=== PATIENT | male | born 1935 ===

== ENCOUNTER 2017-10-30 07:22 | Day surgery (SDC) | payer MEDICARE, MEDICAID ==
[2017-10-30] MEDS ORDERED: Propofol 10 mg/ml Inj (20 ML) ONE ×2 (09:43→10:27)
[2017-10-30 09:47] VITALS: BMI 26.6
[2017-10-30] MEDS ORDERED: Lactated Ringer's 1,000 ML IV ONE (09:48)
--- NOTE | 2017-10-30 09:48 | CP.SDSHP ---
Same Day Surgery H & P - History Proposed Procedure: EGD/colonoscopy Pre-Op Diagnosis: abdominal pain, screening - Previous Medical/Surgical History Cardiac: Hypertension, ASHD/CAD Endocrine/Metabolic: Diabetes - Allergies Allergies: Allergies No Known Allergies Allergy (Verified 01/10/15 07:27) - Physical Exam General Appearance: NAD Vital Signs: Vital Signs 10/30/17 08:30 Temperature 96.9 F L Pulse Rate 66 Respiratory 19 Rate Blood Pressure 166/81 H O2 Sat by Pulse 98 Oximetry Mental Status: Alert & Oriented x3 Neuro: WNL Heart: WNL Lungs: WNL GI: WNL - {Optional Preform as Required} Abdomen: WNL - Impression Pt. Evaluated Today:Candidate for Anesthesia & Procedure: Yes - Date & Time Date: 10/30/17 Time: 09:48 Short Stay Discharge - Short Stay Discharge Admitting Diagnosis/Reason for Visit: ABDOMINAL PAIN, SCREENING Disposition: HOME/ ROUTINE
[2017-10-30 10:54] VITALS: TEMP 97.5
[2017-10-30 11:00] VITALS: O2SAT 100
[2017-10-30 11:22] VITALS: PULSE 55; RESP 12
[2017-10-30 11:40] VITALS: BP 138/73
== END 2017-10-30 12:05 | disposition home or self-care (01) ==
LOC: C.ENDO 07:22
PROVIDERS: ATTEND Internal Medicine Gastroenterology
DX: Z12.11 Encounter for screening for malignant neoplasm of colon (principal); R10.13 Epigastric pain; E11.9 Type 2 diabetes mellitus without complications; I10 Essential (primary) hypertension; I25.10 Atherosclerotic heart disease of native coronary artery without angina pectoris; K25.9 Gastric ulcer, unspecified as acute or chronic, without hemorrhage or perforation; K29.70 Gastritis, unspecified, without bleeding; K44.9 Diaphragmatic hernia without obstruction or gangrene; K29.80 Duodenitis without bleeding; K64.0 First degree hemorrhoids; D12.2 Benign neoplasm of ascending colon; D12.3 Benign neoplasm of transverse colon
CPT/HCPCS: 43239; 45380; 45385; 82948; 88305; J2704; J3010; J7120